=== PATIENT | female | born 1955 | race African-American/Black ===

== ENCOUNTER → 2016-09-13 | Outpatient (CLI) | payer BC ==
[~2016-09-13] MED LIST: ADVIL200 M3; ALPRAZOLAM PO; ASPIRIN81 M2 PO; BENICAR HCT 40-1 TA1 PO; BENZONATATE PO; CIPRO250 M1 PO; CRESTOR PO; ECOTRIN325 MG PO; EFFIENT10 MG PO; FLEXERIL10 MG PO; FLONASE 0.05% N16 G1; HYDROCHLOROTHIA25 MG PO; HYDROCODONE/APA1 T16 PO; JANUVIA50 MG PO; K-DUR20 ME2 PO; LEXAPRO PO; LIORESAL10 MG PO; LISINOPRIL20 MG PO; LORTAB 5/500 TA1 TA2; METFORMIN; METOPROLOL TAR100 MG PO; NEXIUM PO; NIASPAN PO; NITROSTAT0.4 MG SL; NORVASC10 MG PO; OMEPRAZOLE20 M1 PO; PROBIOTIC1 EACH; ROBITUSSIN A-C10 ML PO; TOUJEO SOL300 UNIT/1 SUBQ; ULTRAM PO; VOLTAREN75 MG PO; ZOCOR20 MG PO; ZOFRAN ODT4 MG PO
--- NOTE | ~2016-09-13 | US136 ---
[facility] A Service of [facility] RADIOLOGY TEXT RESULTS PATIENT: VINITA CASAS LOCATION: CNIV : 59 UNIT #: [id number] AGE: [address]: Guille Galvan MD SEX: F ORDER DR: [id number] [facility] [address] [place], [place] [address] [id number] O MR#: [id number] Acc #: [id number] NAME: VINITA CASAS. : 1955 SEX: F STUDY DATE/TIME: 09/13/2016 10:53 UNIT: CNIV ROOM: STUDY DESCRIPTION: US U/L Ext Art Study [facility] Bil Attending Physician: Guille Galvan M.D. Referring Physician: Guille Galvan M.D. Ordering Physician: Guille Galvan M.D. Primary Care Physician: Guille Galvan M.D. MEDICAL IMAGING REPORT This report is preliminary unless electronic signature is present EXAM [id number] indices, 09/13/16 HISTORY Peripheral arterial disease FINDINGS The right brachial pressure is 189. The left brachial pressure is 186. The right dorsalis pedis pressure is 136, posterior tibial 134, and toe 134 for an ankle to brachial index of 0.72. The left dorsalis pedis pressure is 124, posterior tibial 100, and toe 121 for an ankle to brachial index of 0.66. Pulse volume recording tracings demonstrate dampening of the amplitude of the signal at the ankle level bilaterally. The distal signal is more dampened on the right side than the left. Doppler waveform analysis indicates a biphasic signal in the right posterior tibial and dorsalis pedis arteries, and a monophasic signal in the left posterior tibial and dorsalis pedis arteries. IMPRESSION Moderate ischemia of both legs. Dctcx-if-cjermbwg index is 0.72 on the right and 0.66 on the left. Dictated by... Rony Sommers M.D. [facility] A Service of [facility] RADIOLOGY TEXT RESULTS PATIENT: VINITA CASAS LOCATION: CNIV : 59 UNIT #: [id number] AGE: [address]: Guille Galvan MD SEX: F ORDER DR: THIS IS AN ELECTRONICALLY VERIFIED REPORT Rony Sommers M.D. at 09/14/2016 8:26 AM Melany TD: 09/13/2016 14:21 JOB #: [id number] MEDICAL IMAGING REPORT Page 1 of 1 COPY
== END | disposition home or self-care (01) ==
LOC: CNIV 10:41
DX: I73.9 Peripheral vascular disease, unspecified (principal); I99.8 Other disorder of circulatory system
CPT/HCPCS: 93922